=== PATIENT | male | born 1955 | race Caucasian/White ===

== ENCOUNTER 2021-07-15 17:27 | Emergency (ER) | payer BC ==
[2021-07-16 00:05] LABS: BUN/CREATININE RATIO 19 (0-10)
[2021-07-16 00:10] LABS: HEMOGLOBIN 15.1 gm/dl (14.0-17.5); RED BLOOD COUNT 4.8 M/UL (4.20-5.50)
== END 2021-07-16 02:33 | disposition home or self-care (01) ==
LOC: ER1 17:27
DX: R00.2 Palpitations (principal); I48.91 Unspecified atrial fibrillation; Z79.82 Long term (current) use of aspirin
CPT/HCPCS: 71045; 80053; 82550; 82553; 84484; 85025; 93005; 99285